=== PATIENT | female | born 1970 | race Caucasian/White ===

== ENCOUNTER 2020-11-13 10:52 | Outpatient (CLI) | payer OTHER, SELFPAY | END 2020-11-13 10:53 | disposition home or self-care (01) | LOC: ANHBWCAUD 10:53 | PROVIDERS: Visit Provider Nurse Practitioner Family | DX: H91.93 Unspecified hearing loss, bilateral (principal) | CPT/HCPCS: 92557; 92567 ==

== ENCOUNTER 2021-01-08 12:30 | Outpatient (RCR) | payer OTHER, SELFPAY | END 2021-03-07 23:59 | disposition home or self-care (01) | LOC: ANHBWCAUD 12:30 | PROVIDERS: Visit Provider Nurse Practitioner Family | DX: Z46.1 Encounter for fitting and adjustment of hearing aid (principal) | CPT/HCPCS: 99199; V5160; V5261; V5264 ==

== ENCOUNTER 2021-04-16 08:00 | Outpatient (RCR) | payer OTHER, SELFPAY | END 2021-07-01 23:59 | disposition home or self-care (01) | LOC: ANHBWCAUD 08:00 | DX: Z46.1 Encounter for fitting and adjustment of hearing aid (principal) | CPT/HCPCS: 99199 ==